=== PATIENT | male | born 1955 | race Caucasian/White ===

== ENCOUNTER 2019-03-29 11:01 | Day surgery (SDC) | payer MEDICARE, OTHER ==
[~2019-03-29] VITALS: Ht 170.2 cm; Wt 102.5 kg
[~2019-03-29 11:01] MED LIST: BAYER CHEWABLE81 MG PO; CALTRATE 600+D1 EAC1 PO; EFFEXOR XR150 MG PO; EFFEXOR XR75 MG PO; FLUTICASONE PRO16 GM NAS; MULTIVITAMINS1 EAC7 PO; OMEGA 3 FISH O1 EACH PO; PRAVACHOL40 MG PO; SILDENAFIL20 MG PO; SYNTHROID25 MCG PO; VITAMIN B122500 MCG PO; ZESTRIL10 MG PO
--- NOTE | 2019-03-29 13:09 | NUR ---
03/29/19 1309 Angie Jones 1304 PATIENT ARRIVES TO PACU AWAKE OFF/ON. RESP EVEN AND UNLABORED, NC AT 2 LITERS TURNED OFF ON ARRIVAL TO PACU.
--- NOTE | 2019-03-31 14:06 | OR ---
[facility] [address], [place] [address] Signed DATE OF OPERATION: 03/29/2019 SURGEON: Kadeem Shepherd MD PREOPERATIVE DIAGNOSIS: Colon screening. POSTOPERATIVE DIAGNOSIS: Normal colon to cecum. PROCEDURE PERFORMED: Total colonoscopy to cecum. ANESTHESIA: Intravenous sedation, fentanyl 100 mcg, Versed 6 mg. INDICATION: This 63-year-old white man is a patient of Dr. Kadeem Rodriguez of [place], [place]. He is a self-employed frye. He is here for colonoscopy having no bleeding diarrhea and only occasional constipation problems. He does have a history of sleep apnea, for which he uses a CPAP device. He is admitted at this time to undergo colonoscopy. He understands the risks of bleeding, infection, and perforation. FINDINGS: Prep was excellent. Complete colonoscopy was undertaken to the cecum without question. He had no findings of concern specifically no polyps, diverticular formation, colitis, or cancer. DESCRIPTION OF PROCEDURE: The patient was brought to the endoscopy suite, placed in lateral decubitus position, given intravenous sedation to the point of slurred speech and nystagmus. Digital rectal examination was normal. An Olympus videocolonoscope was passed in the rectum and manipulated throughout the colon ultimately intubating the cecum itself. The ileocecal valve and appendiceal orifice were normal. The scope was withdrawn from that point. Examination throughout showed no sign of abnormality including the rectum upon retroflexed view, which was also normal. The scope was straightened, withdrawn, and removed, and the patient was taken to recovery room in good condition. Electronically Signed By: KADEEM SHEPHERD MD 03/31/19 1406 PATIENT NAME: LE GUADARRAMA OPERATIVE REPORT DATE OF : 51 REPORT #: [id number] PHYSICIAN: KADEEM SHEPHERD MD PCP: KADEEM RODRIGUEZ MD REPORT IS CONFIDENTIAL AND NOT TO BE RELEASED WITHOUT AUTHORIZATION [facility] [address] [place] [address], [place] [address] Signed CONCLUDING DIAGNOSIS: Normal colon to cecum. PLAN: Repeat colonoscopy in 10 years, sooner if clinically indicated. He will return to the ongoing care of Dr. Rodriguez. MD TRISHA Owen/WEI /[id number] cc: Kadeem Rodriguez MD Copies: KADEEM RODRIGUEZ MD ~ Electronically Signed By: KADEEM SHEPHERD MD 03/31/19 1406 PATIENT NAME: LE GUADARRAMA OPERATIVE REPORT DATE OF : 51 REPORT #: [id number] PHYSICIAN: KADEEM SHEPHERD MD PCP: KADEEM RODRIGUEZ MD REPORT IS CONFIDENTIAL AND NOT TO BE RELEASED WITHOUT AUTHORIZATION
== END 2019-03-29 13:44 | disposition home or self-care (01) ==
LOC: OPS 11:01 → DS 11:01 → OPS 12:00
PROVIDERS: Surgery
PROC: 0DJD8ZZ Inspection of Lower Intestinal Tract, Via Natural or Artificial Opening Endoscopic (ICD-10-PCS; principal; 2019-03-29 12:00)
DX: Z12.11 Encounter for screening for malignant neoplasm of colon (principal); F32.9 Major depressive disorder, single episode, unspecified; K59.09 Other constipation; G47.33 Obstructive sleep apnea (adult) (pediatric); E03.9 Hypothyroidism, unspecified; F17.200 Nicotine dependence, unspecified, uncomplicated; Z99.89 Dependence on other enabling machines and devices; Z88.8 Allergy status to other drugs, medicaments and biological substances; Z86.010 Personal history of colon polyps; Z98.890 Other specified postprocedural states
CPT/HCPCS: 99153; G0500; J2250; J3010; J7120